=== PATIENT | female | born 1985 ===

== ENCOUNTER 2021-01-23 12:11 | Emergency (ER) | payer MEDICAID ==
[2021-01-23 12:19] VITALS: BP 141/81
--- NOTE | 2021-01-23 12:21 | Emergency Department Report ---
ED General Adult HPI - General Chief complaint: Extremity Injury, Lower Stated complaint: RT FOOT BROKEN Time Seen by Provider: 01/23/21 12:15 Source: patient Mode of arrival: Ambulatory Limitations: No Limitations - History of Present Illness Initial comments: 36-year-old female patient with remote history of prior crush injury to the right foot presents emergency department with complaints of traumatic right foot/right ankle pain starting 1 week ago. Patient states the pain began after she accidentally missed 2 steps while ambulating down a staircase. She has continued to bear weight over the course of the last week, but the pain has progressively worsened. She has been wearing a compression sleeve in an attempt to relieve her symptoms. Denies hip pain, knee pain, lower leg pain, paresthesias, numbness, skin color changes. Denies other complaints at this time. - Related Data Previous Rx's Medication Instructions Recorded Last Taken Type Naproxen 500 mg PO BID #20 tablet 01/23/21 Unknown Rx Allergies Allergy/AdvReac Type Severity Reaction Status Date / Time sulfamethoxazole Allergy Hives Verified 01/23/21 12:16 [From Bactrim] trimethoprim [From Bactrim] Allergy Hives Verified 01/23/21 12:16 ED Review of Systems ROS: Stated complaint: RT FOOT BROKEN Other details as noted in HPI Other: GENERAL: Negative for fever. CARDIOVASCULAR: Negative for chest pain. PULMONARY: Negative for shortness of breath. GASTROINTESTINAL: Negative for abdominal pain. MUSCULOSKELETAL: Positive for right foot and right ankle pain. NEUROLOGICAL: Negative for headache. INTEGUMENTARY: Negative for rash. ED Past Medical Hx - Past Medical History Hx Hypertension: Yes - Surgical History Additional Surgical History: c-sectionx3 - Social History Smoking Status: Never Smoker - Medications Home Medications: Home Medications Medication Instructions Recorded Confirmed Last Taken Type Naproxen 500 mg PO BID #20 tablet 01/23/21 Unknown Rx ED Physical Exam - General Limitations: No Limitations - Other Other exam information: General: Awake, appropriately interactive, no acute distress. Neck: Supple. Full range of motion intact. Cardiovascular: Normal peripheral perfusion. Pulmonary: No respiratory distress. Patient is speaking normally without use of accessory muscles. Skin: No apparent rashes or lesions. Neurological: No facial asymmetry. Speech is clear. Follows commands. Patient is alert and oriented. Musculoskeletal: Tenderness to palpation throughout the dorsum of the right foot and right medial malleolus without obvious deformity or dislocation. No plantar ecchymosis. Quezada test is negative. Patient is ambulatory without assistance. Distal neurovascular and motor/sensory function intact. Psych: Cooperative. Appropriate mood and affect. ED Course Vital Signs 01/23/21 12:16 Temperature 98.7 F Pulse Rate 69 Respiratory 18 Rate Blood Pressure 141/81 O2 Sat by Pulse 100 Oximetry ED Medical Decision Making - Medical Decision Making Differential diagnosis including but not limited to: sprain, strain, fracture, contusion, dislocation, Achilles tendon rupture On reevaluation, patient remains stable. Repeat neurovascular exam remains intact. X-rays without evidence of acute process. History and exam findings suggestive of right foot sprain; no clinical indication for further diagnostic work-up on an emergent basis at this time. Patient will be discharged home with Shawn wrap, appropriate analgesics, and referral to primary care provider for close outpatient follow-up. Patient expressed understanding and is agreeable to plan of care. RICE precautions discussed. Strict return precautions provided. Repeat exam is unremarkable and benign. History, exam, diagnostic testing, and current condition do not suggest worrisome pathology to warrant further testing, continued ED treatment, admission, or surgical evaluation at this point. Given the low probability of a significant medical illness, it would be more likely to result in harm than benefit to perform further testing at this stage. Discussed findings, presumptive diagnosis, need for follow-up and specific signs/symptoms that should prompt immediate return to the emergency department. Instructions were explained in detail to the patient in addition to giving written discharge information. Patient expressed understanding and was given the opportunity to a sk questions, all of which were satisfactorily answered prior to discharge home. Critical care attestation.: If time is entered above; I have spent that time in minutes in the direct care of this critically ill patient, excluding procedure time. ED Disposition Clinical Impression: Right foot sprain Qualifiers: Encounter type: initial encounter Qualified Code(s): S93.601A - Unspecified sprain of right foot, initial encounter Disposition: TO HOME OR SELFCARE Is pt being admited?: No Does the pt Need Aspirin: No Condition: Stable Instructions: Foot Sprain Additional Instructions: Take Tylenol every 4 hours as needed for pain. Take Naprosyn twice daily with food as needed for pain. Wear compression sleeve as directed. Keep right foot elevated as often as possible to reduce swelling. Follow-up with your primary care provider this week. Call today to schedule an appointment. Return to the emergency department immediately for new or worsening symptoms. Prescriptions: Naproxen 500 mg PO BID #20 tablet Referrals: [facility] [Provider Group] - 3-5 Days Time of Disposition: 12:59
--- NOTE | 2021-01-23 12:52 | XRay Report ---
RIGHT ANKLE 3 VIEWS INDICATION: fall down 2 steps. COMPARISON: None. IMPRESSION: No acute osseous or soft tissue abnormality. No significant DJD. RIGHT FOOT 3 VIEWS INDICATION: fall down 2 steps. COMPARISON: None. IMPRESSION: No acute osseous or soft tissue abnormality. No significant DJD. Signer Name: Leroy Schmidt Jr, MD Signed: 01/23/2021 12:48 PM Workstation Name: [id number]
== END 2021-01-23 13:08 | disposition home or self-care (01) ==
LOC: ED 12:11
DX: S93.601A Unspecified sprain of right foot, initial encounter (principal); I10 Essential (primary) hypertension; Z88.2 Allergy status to sulfonamides; Z88.8 Allergy status to other drugs, medicaments and biological substances; Z79.899 Other long term (current) drug therapy; Z98.890 Other specified postprocedural states; W10.9XXA Fall (on) (from) unspecified stairs and steps, initial encounter; Y93.89 Activity, other specified; Y92.89 Other specified places as the place of occurrence of the external cause; Y99.8 Other external cause status

== ENCOUNTER 2021-05-09 11:00 | Outpatient (CLI) | payer MEDICAID | END 2021-05-09 11:01 | disposition home or self-care (01) | LOC: SLR 11:00 | PROVIDERS: ATTEND Specialist | DX: G47.30 Sleep apnea, unspecified (principal); E66.01 Morbid (severe) obesity due to excess calories; I10 Essential (primary) hypertension; M17.9 Osteoarthritis of knee, unspecified; K21.9 Gastro-esophageal reflux disease without esophagitis | CPT/HCPCS: G0399 ==